=== PATIENT | male | born 1945 | race Caucasian/White ===

== ENCOUNTER → 2018-02-24 12:40 | Outpatient (CLI) | payer MEDICARE, OTHER, SELFPAY ==
--- NOTE | 2018-02-24 | DI.MRI.S_ITS ---
PROCEDURE: MR SHOULDER RT WO CON INDICATIONS: RIGHT SHOULDER PAIN TECHNIQUE: Noncontrast oblique coronal T2 fast spin echo with fat saturation, oblique sagittal T1 spin echo and T2 fast spin echo with fat saturation, axial T1 spin echo and T2 fast spin echo with fat saturation through the shoulder. COMPARISON: None. FINDINGS: Image quality: Excellent. Rotator cuff: There is tendinosis and moderate grade articular surface partial thickness tear involving distal supraspinatus tendon at its insertion on greater tuberosity of humeral head. There is suggestion of focal full-thickness perforation involving anterior to mid fibers of the distal supraspinatus at its insertion with approximately 7-8 mm medial retraction of torn tendon fibers. Tendinosis and low to moderate grade articular surface partial thickness involving distal infraspinatus is also seen. There is tendinosis and moderate grade intrasubstance partial thickness involving distal subscapularis. Sagittal images demonstrate mild supraspinatus muscle atrophy. Bones and bursae: No bone marrow contusions or fractures. 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 The acromion demonstrates conventional anatomy, without an os acromiale. No pathologic subacromial-subdeltoid or subcoracoid bursal fluid is present. Capsule and soft tissues: In the absence of intra-articular contrast, the glenohumeral ligaments appear intact. There is suggestion of superior anterior labral tear extending from 12 to 2:00 position. The long head of the biceps tendon demonstrates normal location and morphology. The rotator interval appears normal, without fibrosis. The coracohumeral ligament is normal in thickness. IMPRESSION: 1. Tendinosis and moderate grade articular surface partial thickness tear involving distal supraspinatus and infraspinatus at their insertions on greater tuberosity of humeral head extending to the musculotendinous junction. Focal full-thickness perforation involving anterior to mid fibers of distal supraspinatus at its insertion on the humeral head with 7-8 mm medial retraction of torn tendon fibers. Mild supraspinatus muscle atrophy. Tendinosis and low to moderate grade intrasubstance partial thickness involving distal subscapularis. 2. Suggestion of superior anterior labral tear from 12 to 2:00 position. 3. Moderate acromioclavicular joint and glenohumeral joint osteoarthritis. Dictated by: Priyank Venegas M.D. on 02/24/2018 at 14:50 Approved by: Priyank Venegas M.D. on 02/24/2018 at 14:58
== END ==
PROVIDERS: Visit Provider Orthopaedic Surgery
DX: M75.41 Impingement syndrome of right shoulder (principal); M75.111 Incomplete rotator cuff tear or rupture of right shoulder, not specified as traumatic; M19.011 Primary osteoarthritis, right shoulder
CPT/HCPCS: 73221